=== PATIENT | male | born 1965 | race Caucasian/White ===

== ENCOUNTER → 2017-07-31 | Outpatient (CLI) | payer OTHER ==
[~2017-07-31] MED LIST: ALLO100T PO; FLUT1INH INH; LISI10TA3 PO; OXYC1TAB63 PO
--- NOTE | 2017-07-31 13:07 | RADRPT ---
EXAM DATE/TIME: 07/31/2017 10:42 [place] COMPARISON: No previous studies available for comparison. INDICATIONS : Pre op colostomy reversal FLUORO TIME: 3.3 minutes IMAGE COUNT: 14 CONTRAST: 1. Gastroview MEDICAL HISTORY : Diverticulitis. SURGICAL HISTORY : Colostomy. ENCOUNTER: Initial ACUITY: 4 - 6 months PAIN SCORE: 3/10 LOCATION: Abdomen FINDINGS: Preliminary film is unremarkable. Under fluoroscopic guidance a Gastrografin enema was performed with free flow of contrast within the rectal pouch. There was a large amount of stool present within the large bowel upon catheterization o f the colostomy site with numerous filling defects seen within the bowel consistent with stool. There was contrast spilling out of the colostomy despite multiple attempts to obtain a good seal. There wa s some opacification of the large bowel to the mid transverse colon.. Post evacuation radiographs are unremarkable. CONCLUSION: Gastrografin series as above. Large amount of stool noted within the colon which did limit retrograde opacification of the large bowel from the colostomy. Taj Jones MD on July 31, 2017 at 13:02 Board Certified Radiologist. This report was verified electronically.
== END ==
LOC: HRAD 10:18 → EDUNIT# 11:00
PROVIDERS: ATTEND Surgery Trauma Surgery
DX: Z93.3 Colostomy status (principal)
CPT/HCPCS: 74270

== ENCOUNTER 2017-08-02 05:44 | Inpatient (IN) | payer OTHER ==
[~2017-08-02] VITALS: Ht 167.6 cm; Wt 89.2 kg
[~2017-08-02 05:44] MED LIST changes: +DIATRIZOATE MEGLUM/DIATRIZOATE SOD 120 ML BTL (for RAD DIAG) RECTAL ONE; -OXYC1TAB63 PO
[2017-08-02] MEDS ORDERED: SODIUM CHLORID 0.9% 500 ML IV PRN (06:30)
[2017-08-02] MEDS ORDERED: ALVIMOPAN 12 MG CAPSULE - On Call PO SCH (06:30)
[2017-08-02] MEDS ORDERED: CHLORHEXIDINE GLUCONATE 2 % 1 PACK (2 CLOTHS) TOPICAL PRN (06:30)
[2017-08-02] MEDS ORDERED: metroNIDAZOLE 500 MG INJ 100 ML IV SCH (06:30)
[2017-08-02] MEDS ORDERED: POVIDONE IODINE 5% (ANTISEPSIS KIT) 4 APPLICATIONS EACH NARE PRN (06:30)
[2017-08-02] MEDS ORDERED: ceFAZolin 2 GM PREMIX 50 ML IV SCH (06:30)
[2017-08-02] MEDS ORDERED: LACTATED RINGER'S 1000 ML IV PRN (06:30)
[2017-08-02] MEDS ORDERED: METOPROLOL TARTRATE 25 MG TAB PO PRN (06:30)
[2017-08-02 07:10] LABS: AUTOMATED NEUTROPHIL # 4.6 TH/MM3 (1.8-7.7); BASOPHIL # 0.1 TH/MM3 (0-0.2); BASOPHIL % 0.9 % (0.0-2.0); EOSINOPHIL # 0.5 TH/MM3 (0-0.4); EOSINOPHIL % 6.2 % (0.0-4.0); HEMATOCRIT 50.7 % (39.0-51.0); HEMOGLOBIN 17.1 GM/DL (13.0-17.0); LYMPH % 29.2 % (9.0-44.0); LYMPHOCYTE # 2.3 TH/MM3 (1.0-4.8); MEAN CELL VOLUME 84.7 FL (80.0-100.0); MEAN CORPUSCULAR HEMOGLOBIN 28.5 PG (27.0-34.0); MEAN CORPUSCULAR HGB CONC 33.7 % (32.0-36.0); MEAN PLATELET VOLUME 8.8 FL (7.0-11.0); MONO % 5.9 % (0.0-8.0); MONOCYTE # 0.5 TH/MM3 (0-0.9); NEUT % 57.8 % (16.0-70.0); PLATELET COUNT 148 TH/MM3 (150-450); RED BLOOD COUNT 5.99 MIL/MM3 (4.50-5.90); RED CELL DISTRIBUTION WIDTH 15.6 % (11.6-17.2)
[2017-08-02] MEDS ORDERED: BUPIVACAINE/EPINEPHRINE 0.5% PF 10 ML VIAL ONE (07:20)
[2017-08-02 07:22] LABS: BICARBONATE 28.8 MEQ/L (21.0-32.0); CALCIUM 8.9 MG/DL (8.5-10.1); CREATININE 0.86 MG/DL (0.60-1.30)
[2017-08-02] MEDS ORDERED: NALOXONE HCL 0.4 MG/ML AMP IV PUSH PRN (11:30)
[2017-08-02] MEDS ORDERED: oxyCODONE/ACETAMINOPHEN 5 MG/325 MG TAB PO PRN (11:30)
[2017-08-02] MEDS ORDERED: DO NOT ADM ANY ANTICOAGULANT DRUGS PRN (11:33)
[2017-08-02] MEDS ORDERED: *morphine SULFATE 8 MG/ML PERIprocedure ONLY ONE (11:39)
[2017-08-02] MEDS ORDERED: MIDAZOLAM HCL 2 MG/2 ML VIAL ONE (11:45)
[2017-08-02] MEDS: KETOROLAC TROMETHAMINE 30 MG/ML (IVP) VIAL IVP PRN (11:50)
[2017-08-02] MEDS: D5-NS + KCL 20 MEQ INJ 1,000 ML IV SCH ×2 (11:50→19:08)
[2017-08-02] MEDS ORDERED: Post-op Orders (for Pharmacy) XX ONE (11:52)
[2017-08-02] MEDS ORDERED: VECURONIUM BROMIDE 20 MG VIAL IV ONE (12:00)
[2017-08-02] MEDS ORDERED: LACTATED RINGER'S 1000 ML INJ 1,000 ML IV ONE (12:00)
[2017-08-02] MEDS ORDERED: GLYCOPYRROLATE 1 MG/5 ML SYRINGE IV PUSH ONE (12:00)
[2017-08-02] MEDS ORDERED: LABETALOL HCL 100 MG/20 ML VIAL IV ONE (12:00)
[2017-08-02] MEDS ORDERED: NEOSTIGMINE 5 MG/5 ML SYRINGE IV PUSH ONE (12:00)
[2017-08-02] MEDS ORDERED: STERILE WATER FOR INJECTION 20 ML VIAL IV ONE (12:00)
[2017-08-02] MEDS ORDERED: SUCCINYLCHOLINE CHLORIDE 100 MG/5 ML SYRINGE IV PUSH ONE (12:00)
[2017-08-02] MEDS ORDERED: DEXAMETHASONE SOD PHOS 4 MG/ML VIAL IV ONE (12:00)
[2017-08-02] MEDS ORDERED: ONDANSETRON HCL 4 MG/2 ML VIAL IV PUSH ONE (12:00)
[2017-08-02] MEDS ORDERED: *HYDROmorphone PF 0.5 MG/0.5 ML PERIprocedure ONLY ONE (12:00)
[2017-08-02] MEDS ORDERED: LIDOCAINE HCL 1% PF 5 ML SYRINGE OTHER ONE (12:00)
[2017-08-02] MEDS ORDERED: PROPOFOL 200 MG/20 ML AMP IV ONE (12:00)
--- NOTE | 2017-08-02 12:07 | MP ---
cc: Jericho Ceballos MD DATE OF OPERATION: 08/02/2017 PREOPERATIVE DIAGNOSIS: Colostomy status post perforated diverticulitis. POSTOPERATIVE DIAGNOSIS: Colostomy status post perforated diverticulitis. PROCEDURES PERFORMED: 1. Laparoscopic-assisted colostomy takedown. 2. Laparoscopic lysis of adhesions. 3. Exploratory laparotomy. 4. Repair of parastomal hernia. 5. Revision midline scar. 6. Rigid sigmoidoscopy by Dr. Jose C Montano. SURGEON: Jericho Ceballos MD HOSPITAL UNIT CLERK: Jose C Montano MD ANESTHESIA: General endotracheal. COMPLICATIONS: None. ESTIMATED BLOOD LOSS: About 100 cc. IV FLUID: 2.2 liters lactated Ringer's. INDICATIONS FOR PROCEDURE: Mr. Alvarenga is a very pleasant 51-year-old gentleman who several months ago had an episode of perforated diverticulitis at [facility]. He underwent an exploratory laparotomy and a diverting colostomy and resection of the sigmoid. He was referred to me for consideration of colostomy takedown. Risks and benefits of colostomy takedown was discussed with him and he was agreeable. A preoperative Gastrografin enema demonstrated no residual diverticula or significant scarring in the colon or masses in the colon. Risks and benefits of the procedure were discussed with him in detail and he was agreeable. DETAILS: The patient was identified, brought to the operating room, placed supine on the operating table. After adequate general endotracheal anesthesia was achieved, the colostomy was then sewn closed with a 2-0 silk suture. The abdomen was then prepped and draped in standard surgical fashion. 0.25% Marcaine was injected in the right upper quadrant. A transverse incision was made. Dissection was carried down to the subcutaneous tissue to the anterior abdominal wall fascia. The anterior abdominal wall fascia was incised sharply. Abdominal wall musculature was then spread along the course of its fibers. The peritoneum was then grasped, elevated, and divided sharply. A finger was then placed in the peritoneal cavity without difficulty. Blunt balloon trocar was inserted and the abdomen was insufflated to 15 mmHg using CO2 gas. Next, a 30-degree laparoscope was inserted. The patient was noted to have some midline omental adhesions to his previous incision, as well as a very moderate-sized parastomal hernia. This was photographed. A 5 mm port was then placed in the right lower quadrant under direct vision after anesthetizing the skin and subcutaneous tissue with 0.25% Marcaine. The midline adhesions were then carefully taken down with blunt dissection freeing up the entire midline incision. The patient was placed in Trendelenburg position and the rectal stump was easily identified with no significant adhesions or scarring around it. Staple line was clearly seen. Next, the descending colon was grasped. The splenic flexure had been taken down at the previous surgical procedure. The patient had an adequate amount of length colon length in order to reach the pelvis based on what we could see laparoscopically. We therefore elected to go ahead and convert the procedure to open. The stoma was taken down with elliptical skin incision. Dissection was carried down through the subcutaneous tissue, dissecting the colon down to the fascia into the hernia defect. Hernia sac was excised. The colon was freed up completely. The distal colon was then transected with a LACHELLE-75 green load and then dropped back into the abdominal cavity. Attention was directed to the patient's midline scar. The patient had a fairly large midline scar and they had previously not closed it and only left it open with VAC. We therefore elected to excise this entire scar as it was quite wide and unsightly. Elliptical skin incision was used to excise the previous scar. Dissection was carried down to the subcutaneous tissue to the midline fascia. The fascia was then opened with electrocautery Bovie. Wound was opened widely. A wound protector was then placed over the wound. The patient was then placed turned out of Trendelenburg position. The small bowel was packed into the right upper quadrant. Bookwalter retractor was used to assist in retraction. Attention was first directed to the left upper quadrant where some adhesions were taken down from the omentum to the transverse colon in order to provide additional length. With this, we had a significant amount of length to reach down to the pelvis with no tension whatsoever. Attention was now directed to the pelvis where the rectal stump was identified. The staple line was clearly seen. There were minimal adhesions around it. The colon appeared healthy and required no significant mobilization. At this point, Dr. Montano went down below and performed rigid sigmoidoscopy. No identified no abnormalities were identified. He was able to advance the scope all the way to the rectal stump and we could palpate the end of the sigmoidoscope. He then removed this. Attention was now directed to the descending colon. Descending colon site was selected several centimeters away from the previous staple line where the colon appeared to be nice and pink and healthy with no compromise whatsoever. A bowel clamp was placed proximal to this. The colon was then transected with sharp scissors. The distal colon was then discarded. The bleeding edges were controlled with electrocautery Bovie. Attention was now directed to sizing of the colon. A 25 sizer easily passed. A 29 size sizer easily passed and then we were able to advance a 33 with only a small amount of tension, without disturbing or tearing the colon. We therefore elected a 33 EEA. A 33 anvil was then brought up onto the operative field. The anvil was then placed in the descending colon. A pursestring suture was then placed using a 3-0 Prolene suture circumferentially getting full thickness bites. The pursestring was then sutured down. The edges of the anvil were then cleaned off of all fatty tissue circumferentially with good bowel circumferentially around the anvil with no defects. Dr. Montano then advanced the 33 EEA up to the rectal stump where we could clearly palpated it. The anterior surface of the colon was selected. The spike was then deployed. The anvil was then attached to the spike with no tension and making sure the colon was oriented properly. The anvil was then drawn down into the green zone and then about 10 seconds was allowed to pass and Dr. Montano fired the stapler. Dr. Montano then retrieved the stapler. Dr. Montano then inspected the anvil and there were two good complete tissue donuts around both sides of the anvil. Dr. Montano then reintroduced the rigid sigmoidoscope. We pinched the proximal colon closed with our fingers and then insufflated the colon underwater and there were no bubbles noted. Dr. Montano noted a small amount of blood in the rectal vault from the anastomosis, but no significant bleeding was noted. He did not advance all the way up to visualize the anastomosis. Again, no air leaks were noted throughout his entire procedure while we clamped the proximal colon. Dr. Montano opened the sigmoidoscope and all air was evacuated. Please see his operative note for the details of the sigmoidoscopy. Again, the colon was inspected, was under no tension whatsoever and laid easily in the pelvis. The small bowel was then released from the retractor and inspected. No gross abnormalities were noted and the patient had minimal intra-abdominal adhesions. The wound was copiously irrigated with normal saline solution. Omentum was then brought down and placed over the entire small bowel and down into the pelvis around the anastomosis. Attention was now directed to closure. Attention was first directed to the fascial defect from the colostomy site where the patient had a parastomal hernia. We closed the posterior fascia and the peritoneum internally using a 2-0 Vicryl suture. The external fascia was then closed with #1 PDS in a continuous running fashion single stranded. The wound was copiously irrigated. The wound was then closed with 3-0 Vicryl and cheryl. Attention was now directed to the midline incision. The midline incision was closed with #1 looped PDS from both above and below. The wound was copiously irrigated and closed with 3-0 Vicryl and cheryl. Finally, the laparoscopic site in the right upper quadrant was closed with a 0 Vicryl in a [id number] fashion. The wound was copiously irrigated and closed with a 4-0 nylon. The 5 mm port site was also closed with 4-0 nylon. Sterile dressings were applied. The patient was awaken and brought to Recovery in stable condition. MD KERA Cronin/PAIGE , 11:28 AM , 12:07 PM
[2017-08-02] MEDS: MORPHINE SULFATE 30 MG/30 ML PCA IV SCH ×2 (12:24→18:30)
[2017-08-02 14:40] VITALS: BP 119/70; PULSE 60; RESP 19; TEMP 97.2; O2SAT 97
[2017-08-02] MEDS: PCA - TOTAL MG MORPHINE DELIVERED PER SHIFT SCH ×2 (15:08→22:00)
[2017-08-02] MEDS: ONDANSETRON HCL 4 MG/2 ML VIAL IV PUSH PRN (18:41)
[2017-08-02] MEDS: oxyCODONE/ACETAMINOPHEN 5 MG/325 MG TAB PO PRN (19:13)
[2017-08-02 20:00] VITALS: BP 120/67; PULSE 70; RESP 18; TEMP 98.2; O2SAT 96
[2017-08-02] MEDS ORDERED: ALVIMOPAN 12 MG CAPSULE PO SCH (21:00)
[2017-08-03] VITALS (7 sets, daily range): BP systolic 127–146; BP diastolic 71–81; PULSE 60–85; RESP 16–19; TEMP 97.1–98.6; O2SAT 96–99
[2017-08-03] MEDS: MORPHINE SULFATE 30 MG/30 ML PCA IV SCH ×4 (00:09→22:00)
[2017-08-03] MEDS: D5-NS + KCL 20 MEQ INJ 1,000 ML IV SCH ×3 (02:36→21:23)
[2017-08-03] MEDS: oxyCODONE/ACETAMINOPHEN 5 MG/325 MG TAB PO PRN ×2 (02:37→07:21)
[2017-08-03] MEDS: PCA - TOTAL MG MORPHINE DELIVERED PER SHIFT SCH ×3 (06:00→21:21)
[2017-08-03 06:01] LABS: AUTOMATED NEUTROPHIL # 10.4 TH/MM3 (1.8-7.7); BASOPHIL % 0.2 % (0.0-2.0); EOSINOPHIL % 0.1 % (0.0-4.0); HEMATOCRIT 39.2 % (39.0-51.0); HEMOGLOBIN 13.5 GM/DL (13.0-17.0); LYMPH % 10.6 % (9.0-44.0); LYMPHOCYTE # 1.4 TH/MM3 (1.0-4.8); MEAN CELL VOLUME 84.7 FL (80.0-100.0); MEAN CORPUSCULAR HEMOGLOBIN 29.1 PG (27.0-34.0); MEAN CORPUSCULAR HGB CONC 34.4 % (32.0-36.0); MEAN PLATELET VOLUME 9.2 FL (7.0-11.0); MONO % 7.5 % (0.0-8.0); NEUT % 81.6 % (16.0-70.0); PLATELET COUNT 140 TH/MM3 (150-450); RED BLOOD COUNT 4.63 MIL/MM3 (4.50-5.90); RED CELL DISTRIBUTION WIDTH 15.2 % (11.6-17.2); WHITE BLOOD COUNT 12.8 TH/MM3 (4.0-11.0)
[2017-08-03 06:34] LABS: BICARBONATE 30.5 MEQ/L (21.0-32.0); CALCIUM 7.9 MG/DL (8.5-10.1); CREATININE 0.81 MG/DL (0.60-1.30)
[2017-08-03] MEDS: ALVIMOPAN 12 MG CAPSULE - Post-op dosing PO SCH ×2 (07:21→21:21)
[2017-08-03] MEDS ORDERED: INFLUENZA VIRUS VACCINE (QUADRIVALENT) 0.5 ML SYR IM ONE (09:00)
[2017-08-03] MEDS ORDERED: PNEUMOCOCCAL POLYVALENT INJ 25 MCG/0.5 ML SYR IM ONE (09:00)
--- NOTE | 2017-08-03 09:55 | MP ---
cc: Jose C Montano MD DATE OF OPERATION: 08/02/2017 PREOPERATIVE DIAGNOSIS: History of perforated diverticulitis with colostomy creation, end colostomy Ashley's pouch. POSTOPERATIVE DIAGNOSIS: History of perforated diverticulitis with colostomy creation, end colostomy Ashley's pouch. PROCEDURE PERFORMED: Rigid sigmoidoscopy. SURGEON: Dr. Jose C Montano. PSYCHOLOGICAL TESTS SALES AGENT: Dr. Jericho Ceballos. ANESTHESIA: GETA. IV FLUIDS: See anesthesia sheet. ESTIMATED BLOOD LOSS: 5 mL. DRAINS: None. COMPLICATIONS: None. WOUND CLASSIFICATION: Clean, contaminated. FINDINGS: No evidence of leaking from anastomosis colostomy takedown. INDICATIONS FOR THE PROCEDURE: The patient is under the care of Dr. Ceballos who was performing laparoscopic assisted takedown of end colostomy and colostomy reversal with lysis of adhesions. Dr. Ceballos asked assistant food service director for rigid sigmoidoscopy to evaluate the distal stump and assess and facilitate circular EEA anastomosis. Dr. Ceballos discussed all risks to the procedure. DETAILS OF PROCEDURE: The patient had already been prepped and draped in the usual sterile fashion and a time-out done with the patient under general anesthesia as the patient is undergoing laparoscopic assisted colostomy reversal by Dr. Ceballos. The patient was noted to be in the lithotomy position. On Geraldine's inspection of the perineum, no evidence of abnormality. A digital rectal exam was done. There were no masses noted. Scant blood was noted. The rigid sigmoidoscopy was then inserted and advanced to the blind stump. There was no evidence of mucosal abnormality. No evidence of stool as well. Dr. Ceballos had obtained the appropriate sizers and noted a 33 sizer was appropriate for anastomosis. In order to note, the sizers that I obtained in order were placed starting with a 25 up to a 29 and to a 33 were placed comfortably within the colon. The [address] EEA sta[address] was obtained. Dr. Ceballos had already placed the proximal end the colon with a spike and keep fastener placement and therefore, I advanced the EEA stapler through the anus up to the anastomosis. The spike was advanced under my direct supervision and with the supervision of Dr. Ceballos as well. The anvil was then secured to the spike on the EEA stapler. The anvil was then brought comfortably into the stapler and the stapler was fired and held for 10 seconds. The stapler was then turned 3/4 of a turn back in order to release the anvil and facilitate the completion of the EEA staple line. The EEA was removed and the donuts were examined on the back table noting 2 full donuts were completely intact. Next, the rigid sigmoidoscope was obtained and entered through the anus up to the anastomosis, again scant blood. The sigmoidoscope noted to pass comfortably, somewhat difficult in viewing the anastomosis. A saline test was done in order to test the anastomosis, the proximal bowel was clamped. Saline was placed in the pelvis and I insufflated with the sigmoidoscope. There was no evidence of bubbling at this point, confirming no leaking from the anastomosis. The sigmoidoscope was then removed and was withdrawn to identify that again the anastomosis was intact. There were no complications. All counts were correct. The patient was then left under the care of Dr. Ceballos who proceeded to complete the procedure. Refer to Dr. Ceballos's note for a complete operative detail of the rest of the procedure. MD ELSI Ordoñez/MARITZA , 09:16 AM , 09:53 AM
--- NOTE | 2017-08-03 10:49 | HHI.PR ---
cc: Karen Huertas MD Subjective Subjective Notes DAILY PROGRESS NOTE FOR SURGICAL ATTENDING, DR. KAREN HUERTAS Doing well Pain controlled Has been OOB to chair this morning Had one episode of nausea yesterday post op but thinks its related to anesthesia ; no more episodes Objective Vitals/I&O Vital Signs Date Time Temp Pulse Resp B/P (MAP) Pulse Ox O2 Delivery O2 Flow Rate FiO2 08/03/17 08:52 99 21 08/03/17 08:00 97.9 60 16 127/75 (92) 08/02/17 13:25 Room Air 08/02/17 11:34 8 Labs Laboratory Tests Test 08/03/17 05:40 White Blood Count 12.8 Red Blood Count 4.63 Hemoglobin 13.5 Hematocrit 39.2 Mean Corpuscular Volume 84.7 Mean Corpuscular Hemoglobin 29.1 Mean Corpuscular Hemoglobin Concent 34.4 Red Cell Distribution Width 15.2 Platelet Count 140 Mean Platelet Volume 9.2 Neutrophils (%) (Auto) 81.6 Lymphocytes (%) (Auto) 10.6 Monocytes (%) (Auto) 7.5 Eosinophils (%) (Auto) 0.1 Basophils (%) (Auto) 0.2 Neutrophils # (Auto) 10.4 Lymphocytes # (Auto) 1.4 Monocytes # (Auto) 1.0 Eosinophils # (Auto) 0.0 Basophils # (Auto) 0.0 CBC Comment DIFF FINAL Differential Comment Blood Urea Nitrogen 10 Creatinine 0.81 Random Glucose 122 Calcium Level 7.9 Sodium Level 144 Potassium Level 4.7 Chloride Level 108 Carbon Dioxide Level 30.5 Anion Gap 6 Estimat Glomerular Filtration Rate 99 Cardiovascular: Regular Lungs: Clear Abdomen: Other (midline JAKE dressing in place with good seal; LEFT sided incision with Primapore--dry; stapled incision c/d/i; mildly distended; normal post op pain expected ) Extremities: No edema Narrative Exam Alfredo removed A/P Assessment and Plan 52 year old male POD1 ex lap; colostomy takedown; parastomal hernia repair -Continue clear liquids -IVF -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 KAREN HUERTAS I agree with above assessment and plan. The exam, history, and the medical decision-making described in the above note were completed with the assistance of the mid-level provider. I reviewed and agree with the findings presented. I attest that I had a [id number] encounter with the patient on the same day, and personally performed and documented my assessment and findings in the medical record. The following services were provided during this hospital visit: Chart data review, vital sign assessments/reviewing monitor data Review of consultations notes if present. Medication orders/review and/or management Ordering and/or reviewing lab tests Ordering and/or interpreting/reviewing x-rays and/or diagnostic studies Care of the patient and discussion of the patient with the care team Documentation time To help prompt me to consider important information that might be impacting today's encounter and assessment, Information from prior notes written by myself or my colleagues may have been "brought forward/copy and pasted" into today's note. Liseth WheatP/Career Discovery Teacher [employer] CONSULTANT August 03, 2017 10:49 Karen Huertas MD August 03, 2017 17:38
[2017-08-03] MEDS: ONDANSETRON HCL 4 MG/2 ML VIAL IV PUSH PRN (11:21)
--- NOTE | 2017-08-03 11:49 | EKG ---
Date Performed: 08/02/2017 Time Performed: 06:45:33 PTAGE: 52 years EKG: Sinus rhythm NORMAL ECG NO PREVIOUS TRACING DOCTOR: Taiwo Curiel Interpretating Date/Time 08/03/2017 11:45:55
[2017-08-03] MEDS: PANTOPRAZOLE SODIUM 40 MG VIAL IV PUSH SCH (14:40)
[2017-08-03] MEDS: ENOXAPARIN SODIUM 40 MG/0.4 ML SYRINGE SQ SCH (16:12)
[2017-08-04] VITALS (8 sets, daily range): BP systolic 136–178; BP diastolic 80–91; PULSE 64–85; RESP 18–20; TEMP 97.9–98.6; O2SAT 93–98
[2017-08-04] MEDS: oxyCODONE/ACETAMINOPHEN 5 MG/325 MG TAB PO PRN ×2 (01:46→19:40)
[2017-08-04] MEDS: D5-NS + KCL 20 MEQ INJ 1,000 ML IV SCH ×3 (03:38→19:34)
[2017-08-04] MEDS: PCA - TOTAL MG MORPHINE DELIVERED PER SHIFT SCH ×3 (05:34→19:32)
[2017-08-04] MEDS: MORPHINE SULFATE 30 MG/30 ML PCA IV SCH ×2 (05:52→12:32)
[2017-08-04] MEDS: ALVIMOPAN 12 MG CAPSULE - Post-op dosing PO SCH ×2 (08:11→19:34)
--- NOTE | 2017-08-04 12:19 | HHI.PR ---
Subjective Subjective Notes some nausea, no vomiting, pain ok, no BM Objective Vitals/I&O Vital Signs Date Time Temp Pulse Resp B/P (MAP) Pulse Ox O2 Delivery O2 Flow Rate FiO2 08/04/17 12:00 98.2 68 18 165/81 (109) 96 08/03/17 20:30 21 08/02/17 13:25 Room Air 08/02/17 11:34 8 Cardiovascular: Regular Lungs: Clear Abdomen: Non-distended, Post-op tenderness Extremities: No edema, Perfused A/P Assessment and Plan 52 year old male POD2 ex lap; colostomy takedown; parastomal hernia repair, stable. -Continue clear liquids, await bowel function -IVF -IS -C ARCHITECT/Percocet for pain control -OOB and mobilize Amari Diamond MD August 04, 2017 12:19
[2017-08-04] MEDS: PANTOPRAZOLE SODIUM 40 MG VIAL IV PUSH SCH (14:09)
[2017-08-04] MEDS: ENOXAPARIN SODIUM 40 MG/0.4 ML SYRINGE SQ SCH (15:09)
[2017-08-05] VITALS (9 sets, daily range): BP systolic 163–191; BP diastolic 81–93; PULSE 69–86; RESP 16–20; TEMP 97.7–99; O2SAT 96–98
[2017-08-05] MEDS: ENALAPRILAT 1.25 MG/ML VIAL IV PUSH PRN ×3 (00:55→17:00)
[2017-08-05] MEDS: MORPHINE SULFATE 30 MG/30 ML PCA IV SCH ×2 (03:25→14:01)
[2017-08-05] MEDS: D5-NS + KCL 20 MEQ INJ 1,000 ML IV SCH ×2 (04:14→12:01)
[2017-08-05] MEDS: PCA - TOTAL MG MORPHINE DELIVERED PER SHIFT SCH ×3 (06:00→19:51)
[2017-08-05] MEDS: ALVIMOPAN 12 MG CAPSULE - Post-op dosing PO SCH ×2 (07:48→19:48)
[2017-08-05] MEDS: oxyCODONE/ACETAMINOPHEN 5 MG/325 MG TAB PO PRN ×2 (07:52→21:54)
--- NOTE | 2017-08-05 08:30 | HHI.PR ---
Subjective Subjective Notes no issues, mild nausea, oob, still with pain, no flatus Objective Vitals/I&O Vital Signs Date Time Temp Pulse Resp B/P (MAP) Pulse Ox O2 Delivery O2 Flow Rate FiO2 08/05/17 08:00 98.0 69 18 168/81 (110) 97 08/04/17 11:50 21 08/02/17 13:25 Room Air 08/02/17 11:34 8 Abdomen: Non-tender (soft +ttp incisional, [place] in place, good sxn) A/P Assessment and Plan 52 year old male POD3 ex lap; colostomy takedown; parastomal hernia repair, stable. 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
[2017-08-05] MEDS: DOCUSATE SODIUM 50 MG/SENNA 8.6 MG TAB PO SCH (08:54)
[2017-08-05] MEDS: PANTOPRAZOLE SODIUM 40 MG VIAL IV PUSH SCH (14:08)
[2017-08-05] MEDS: ENOXAPARIN SODIUM 40 MG/0.4 ML SYRINGE SQ SCH (15:51)
[2017-08-06] VITALS: BP 150/85; PULSE 69; RESP 18; TEMP 98.6; O2SAT 94
[2017-08-06] MEDS: D5-NS + KCL 20 MEQ INJ 1,000 ML IV SCH (00:15)
[2017-08-06] MEDS: MORPHINE SULFATE 30 MG/30 ML PCA IV SCH (04:51)
[2017-08-06] MEDS: PCA - TOTAL MG MORPHINE DELIVERED PER SHIFT SCH (05:15)
[2017-08-06 08:00] VITALS: BP 167/86; PULSE 72; RESP 20; TEMP 98.1; O2SAT 98
[2017-08-06] MEDS: oxyCODONE/ACETAMINOPHEN 5 MG/325 MG TAB PO PRN ×3 (08:05→20:58)
[2017-08-06] MEDS: DOCUSATE SODIUM 50 MG/SENNA 8.6 MG TAB PO SCH ×2 (08:05→20:29)
[2017-08-06] MEDS: LISINOPRIL 10 MG TAB PO SCH (08:05)
[2017-08-06] MEDS: ALVIMOPAN 12 MG CAPSULE - Post-op dosing PO SCH ×2 (08:06→20:30)
--- NOTE | 2017-08-06 08:29 | HHI.PR ---
Subjective Subjective Notes feels better, passing gas, no BM yet. wants to try some food. 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
[2017-08-06 12:00] VITALS: BP 155/86; PULSE 70; RESP 18; TEMP 98.4; O2SAT 97
[2017-08-06] MEDS: PANTOPRAZOLE SODIUM 40 MG VIAL IV PUSH SCH (15:00)
[2017-08-06] MEDS: KETOROLAC TROMETHAMINE 30 MG/ML (IVP) VIAL IVP PRN ×2 (15:08→20:59)
[2017-08-06 16:00] VITALS: BP 168/92; PULSE 87; RESP 20; TEMP 99.3; O2SAT 95
[2017-08-06] MEDS: ENOXAPARIN SODIUM 40 MG/0.4 ML SYRINGE SQ SCH (16:41)
[2017-08-06 20:00] VITALS: BP 148/79; PULSE 74; RESP 18; TEMP 98.7; O2SAT 96
[2017-08-07] VITALS: BP 159/85; PULSE 67; RESP 18; TEMP 98; O2SAT 94
[2017-08-07] MEDS: oxyCODONE/ACETAMINOPHEN 5 MG/325 MG TAB PO PRN ×2 (04:44→08:43)
[2017-08-07] MEDS: KETOROLAC TROMETHAMINE 30 MG/ML (IVP) VIAL IVP PRN ×2 (04:45→10:18)
[2017-08-07 08:00] VITALS: BP 145/97; PULSE 69; RESP 19; TEMP 98.1; O2SAT 96
[2017-08-07] MEDS ORDERED: OXYC1TAB63 PO (08:20)
--- NOTE | 2017-08-07 08:21 | HHI.DS ---
Discharge Summary Admission Date August 02, 2017 at 13:49 Discharge Date: August 07, 2017 Admitting Diagnosis Brief History 52 year old male s/p colostomy takedown. The patient's diet was advanced as tolerated. His pain was controlled using oral pain medications. He can shower. He will follow up in the office for staple and stitch removal. CBC/BMP: 08/03/17 0540 08/03/17 0540 PE at Discharge Alfredo removed Pt Condition on Discharge: Good Discharge Disposition: Discharge Home Discharge Instructions DIET: Follow Instructions for: As Tolerated, No Restrictions Activities you can perform: See Additionl Instruction Other Activity Instructions: Okay to shower; pat incisions dry No bath tubs Avoid heavy pushing/pulling/lifting Liseth Wheat/First Dipti BRIGHT August 07, 2017 08:21
[2017-08-07] MEDS: DOCUSATE SODIUM 50 MG/SENNA 8.6 MG TAB PO SCH (08:38)
[2017-08-07] MEDS: ALVIMOPAN 12 MG CAPSULE - Post-op dosing PO SCH (08:38)
[2017-08-07] MEDS: LISINOPRIL 10 MG TAB PO SCH (08:38)
[2017-08-07 09:43] VITALS: RESP 18
== END 2017-08-07 10:46 | disposition home or self-care (01) | DRG 330 ==
LOC: HSDC 05:44 → EDSTATUS 08:00 → N07A 13:49
PROVIDERS: ADMIT Surgery Trauma Surgery; ATTEND Surgery Trauma Surgery
PROC: 0DNL0ZZ Release Transverse Colon, Open Approach (ICD-10-PCS; 2017-08-02)
PROC: 0WQF0ZZ Repair Abdominal Wall, Open Approach (ICD-10-PCS; 2017-08-02)
PROC: 0DJD4ZZ Inspection of Lower Intestinal Tract, Percutaneous Endoscopic Approach (ICD-10-PCS; 2017-08-02)
PROC: 0HB7XZZ Excision of Abdomen Skin, External Approach (ICD-10-PCS; 2017-08-02)
PROC: 0DJD8ZZ Inspection of Lower Intestinal Tract, Via Natural or Artificial Opening Endoscopic (ICD-10-PCS; 2017-08-02)
PROC: 0DBM0ZZ Excision of Descending Colon, Open Approach (ICD-10-PCS; principal; 2017-08-02 07:58)
DX: Z43.3 Encounter for attention to colostomy (principal); K57.80 Diverticulitis of intestine, part unspecified, with perforation and abscess without bleeding; K66.0 Peritoneal adhesions (postprocedural) (postinfection); K43.5 Parastomal hernia without obstruction or gangrene; F17.210 Nicotine dependence, cigarettes, uncomplicated; Z23 Encounter for immunization
CPT/HCPCS: 80048; 85025; 86850; 86900; 86901; 90732; 93005; 94150; C9113; J0330; J0690; J1100; J1170; J1650; J1885; J2250; J2270; J2405; J2710; J3010; J3480; J7120; Q9963